=== PATIENT | male | born 1930 | race Caucasian/White ===

== ENCOUNTER 2017-10-18 14:51 | Emergency (ER) | payer OTHER, MEDICARE ==
[~2017-10-18 14:51] MED LIST: ALLOPURINOL100 M1 PO; CALCIUM + VITA1 EAC1 PO; CENTRUM SILVER1 EAC3 PO; ENALAPRIL MALEA20 M1 PO; FISH OIL 1,0001 EAC5 PO; LEVOTHYROXINE150 MCG PO; VERAPAMIL ER180 M1 PO; VITAMIN B-121000 MC3 PO
[2017-10-18 15:09] VITALS: BP 132/77
--- NOTE | 2017-10-18 15:14 | ED ANIMAL BITE/WOUND CHECK ---
History of Present Illness General Chief Complaint: Suture Removal/Wound Recheck Stated Complaint: STAPLE REMOVAL Source: patient, family, old records Exam Limitations: no limitations Vital Signs & Intake/Output Vital Signs & Intake/Output Vital Signs Date Time Temp Pulse Resp B/P B/P Pulse O2 O2 Flow FiO2 Mean Ox Delivery Rate 10/18 1509 98.0 65 18 132/77 98 Room Air Allergies Coded Allergies: NO KNOWN ALLERGIES (01/26/13) NKDA PER ANTIBIOTIC ORDER SHEET OF 01/26/13 - [facility] Reconcile Medications Allopurinol 100 MG TABLET 1 TAB PO DAILY GOUT (Reported) Calcium Carbonate/Vitamin D3 (Calcium + Vitamin D Tablet) (Unknown Strength) TABLET (Unknown Dose) PO DAILY SUPPLEMENT (Reported) Cyanocobalamin (Vitamin B-12) 1,000 MCG TABLET 1 TAB PO DAILY SUPPLEMENT ( Reported) Enalapril Maleate 20 MG TABLET 1 TAB PO DAILY BP (Reported) Levothyroxine Sodium 150 MCG TABLET 1 TAB PO DAILY THYROID (Reported) Multivit-Min/FA/Lycopen/Lutein (Centrum Silver Tablet) 0.4 MG-300 MCG-250 MCG TABLET 1 TAB PO DAILY SUPPLEMENT (Reported) [place]-3S/Dha/Epa/Fish Oil (Fish Oil 1,000 MG Softgel) (Unknown Strength) CAPSULE (Unknown Dose) PO DAILY SUPPLEMENT (Reported) Verapamil HCl (Verapamil ER) 180 MG TABLET.ER 1 TAB PO DAILY BP (Reported) Triage Note: 87M TO ED FOR STAPLE REMOVAL S/P FALL FROM LAST SATURDAY. DENIES N/V OR VISION CHANGES. SCAR APPEARS WELL HEALING. 4 ALEYDA REMOVED WITHOUT ISSUE Triage Nurses Notes Reviewed? yes Onset: Abrupt Duration: week(s): (1), constant, continues in ED, getting worse Timing: single episode today Injury Environment: home Is Injury an Animal Bite? No No Modifying Factors: none HPI: 87-year-old male history of hypertension hyperlipidemia diabetes presenting for staple removal. He was seen about 1 week ago for a scalp laceration treated with 4 aleyda. Patient states she's been doing well since. There has been no headache dizziness lightheadedness. He has steady gait. No chest pain or shortness breath no erythema discharge or fever. (Min Edgar) Past History Travel History Traveled to [place] past 21 day No Medical History Any Pertinent Medical History? see below for history Neurological: NONE EENT: NONE Cardiovascular: hypertension Respiratory: NONE Gastrointestinal: NONE Hepatic: NONE Renal: NONE Musculoskeletal: NONE Psychiatric: NONE Endocrine: diabetes, hypothyroidism Blood Disorders: NONE Cancer(s): NONE ENGAGEMENT SPECIALIST/Reproductive: NONE Surgical History Surgical History: non-contributory Psychosocial History What is your primary language Ma[place] Tobacco Use: Never used Family History Hx Contributory? No (Min Edgar) Review of Systems Review of Systems Constitutional: Reports: no symptoms. EENTM: Reports: no symptoms. Respiratory: Reports: no symptoms. Cardiovascular: Reports: no symptoms. GI: Reports: no symptoms. Genitourinary: Reports: no symptoms. Musculoskeletal: Reports: no symptoms. Skin: Reports: see HPI (sCALP laceration). Neurological/Psychological: Reports: no symptoms. Hematologic/Endocrine: Reports: no symptoms. Immunologic/Allergic: Reports: no symptoms. All Other Systems: Reviewed and Negative (Min Edgar) Physical Exam Physical Exam General Appearance: well developed/nourished, no apparent distress, alert, awake Head: lacerations, right-sided scalp laceration is well approximated with 4 aleyda intact. There is no erythema discharge or pain to palpation. Eyes: Bilateral: normal appearance, PERRL, EOMI. Ears, Nose, Throat: hearing grossly normal Neck: normal inspection, supple, full range of motion Respiratory: no respiratory distress Back: normal inspection, normal range of motion Extremities: normal range of motion Neurologic/Psych: no motor/sensory deficits, awake, alert, oriented x 3, normal gait Skin: intact, normal color, warm/dry (Min Edgar) Progress Differential Diagnosis: abscess, cellulitis Plan of Care: Patient is here for staple removal. The laceration is well approximated. No signs of infection. 4 aleyda removed without palpitation patient tolerated well discussed return precautions and wound care procedures. Case discussed with Dr. DICKSON he agrees. (iMn Edgar) Departure Departure Disposition: HOME OR SELF CARE Condition: Stable Clinical Impression Primary Impression: Removal of staple Referrals: Josey Diane DO (PCP/Family) Additional Instructions: Keep the area clean and dry. LOOK OUT FOR signs of infection like redness swelling discharge or pain. Tylenol for pain. Follow-up with YOUr primary care doctor monitor symptoms return with any concerns Departure Forms: Customer Survey General Discharge Information (Min Edgar) PA/[employer]ACH[employer] Co-Sign Statement Statement: ED Attending supervision documentation- x I saw and evaluated the patient. I have also reviewed all the pertinent lab results and diagnostic results. I agree with the findings and the plan of care as documented in the PA's/MACHINIST [employer] D[employer]'s documentation. [] I have reviewed the ED Record and agree with the PA's/MACHINIST [employer]'s documentation. [] Additions or exceptions (if any) to the PAs/MACHINIST [employer] DIE's note and plan are summarized below: [] (Pam LOFTON,Sai)
== END 2017-10-18 15:17 ==
LOC: ERH 14:51
DX: Z48.02 Encounter for removal of sutures (principal)